=== PATIENT | male | born 1970 | race Caucasian/White ===

== ENCOUNTER 2020-10-23 21:29 | Emergency (ER) | payer OTHER ==
[~2020-10-23] VITALS: Ht 180.3 cm; Wt 90.3 kg
== END 2020-10-24 13:21 | disposition home or self-care (01) ==
LOC: ER 21:29
DX: K52.89 Other specified noninfective gastroenteritis and colitis (principal); E86.0 Dehydration; E87.6 Hypokalemia; Z03.818 Encounter for observation for suspected exposure to other biological agents ruled out